=== PATIENT | male | born 1990 | race Caucasian/White ===

== ENCOUNTER 2018-01-17 14:15 | Emergency (ER) | payer BC, SELFPAY ==
[2018-01-17 14:15] VITALS: BP 123/74; PULSE 50; RESP 16; TEMP 36.6; O2SAT 98; BMI 18.0
--- NOTE | 2018-01-17 14:29 | EKG12_ITS ---
Test Reason : ABD PAIN Blood Pressure : / mmHG Vent. Rate : 046 BPM Atrial Rate : 046 BPM P-R Int : 128 ms QRS Dur : 092 ms QT Int : 524 ms P-R-T Axes : 060 -08 060 degrees QTc Int : 458 ms Sinus bradycardia Otherwise normal ECG Confirmed by HOANG DORSEY, CINTHYA ([id number]), assistant film editor DARREN GOLD ([id number] on 01/20/2018 1:55:40 PM Referred By: GERDA Confirmed By:CINTHYA BOLTON MD
--- NOTE | 2018-01-17 14:32 | ED.VISSUMM ---
- ER Visit Summary Date of Service: 01/17/18 Chief Complaint: Acute on chronic abdominal pain History of Present Illness: The patient is a 27 M past medical history of reflux, colitis and depression. Patient states his abdominal pain since 2010. He states he seen 5 different GI specialist. 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 Patient states his latest colonoscopy was about a year ago. He states he has chronic crampy abdominal pain. And chronic diarrhea. No melena. No fever. No prior abdominal surgeries. His girlfriend states when he sleeps his heart rate drops into the 30s. Physical Examination: Well-appearing but thin male. Vital signs are stable afebrile. His heart rates 50 his blood pressure is 123/74. He does not look septic or toxic. He is well hydrated. HEENT exam unremarkable. Electric memories. Neck nontender. No lymphadenopathy. Heart regular rhythm rate about 50. Lungs clear to auscultation bilaterally. Abdomen soft. Nondistended. Normal bowel sounds. No peritoneal signs. No localizing tenderness. He states it is painful all over. There is no hernias or masses. No signs of obstruction. Patient is moving all 4 extremities. Neurovascular intact. Back nontender. Neurologically he is awake and alert without focal motor deficits. Test Results: CBC shows white count of 6. Hemoglobin 14. No bands. Chemistries normal. Normal gap and creatinine. EKG shows a sinus bradycardia. Rate of 46. Emergency Department Course and Treatment: Treated with IV fluids. The exam patient is doing well at 1526. He is comfortable being discharged home. He did ask for a referral for further evaluation for depression. He will be referred to the counseling center. Treatment Plan: Follow-up with the counseling center. Disposition: Discharge Impression: Acute on chronic abdominal pain of uncertain etiology. Chronic diarrhea with a history of colitis Sinus bradycardia This note was generated with [employer] dictation software. It may contain incorrect words, spelling, and punctuation that were not noted in review of the chart prior to signing ED Disposition - Plan for ED Patient: Chief Complaint: Abd Pain
[2018-01-17] MEDS: 0.9% Normal Saline 1,000 ML 1000 ML IV (14:44)
[2018-01-17 14:56] LABS: Anion Gap 9 (5-15); BUN 16 mg/dL (7-18); BUN/Creat Ratio 16.5 RATIO (10-20); Calcium,Total 8.9 mg/dL (8.5-10.1); Chloride 103 mmol/L (98-107); Creatinine, Serum 0.97 mg/dL (0.70-1.30); EST Glomerular Filtration Rate 98 mL/min (>60); Est Glom Filt Rate - Afr Amer 119 mL/min (>60); Estimated Creatinine Clearance 103.04 ml/min; Glucose 81 mg/dL (74-106); Potassium 3.5 mmol/L (3.5-5.1); Sodium Level 142 mmol/L (136-145)
[2018-01-17 15:03] LABS: Basophil# 0.06 X10^3/uL; Eosinophil# 0.13 X10^3/uL; Eosinophils% 2.1 % (0-5); Hematocrit 42.4 % (40-54); Hemoglobin 14.2 g/dl (13.0-16.5); Lymphocyte % 37.8 % (19-41); Mean Corp Hgb Conc 33.5 g/gl (32-36); Mean Corpuscular Hgb 30.3 pg (27.0-32.0); Mean Corpuscular Volume 90.6 fL (80-94); Mean Platelet Vol. 9.5 fl (6.2-12.0); Monocyte# 0.64 X10^3/uL; Monocyte% 10.5 % (0-10); Neutrophil # 2.95 X10^3/uL (2.7-7.7); Neutrophil % 48.6 % (47-70); Platelet Count 192 K/mm3 (150-450); RBC Distribution Width SD 42.8 fl (35.1-43.9); Red Blood Count 4.68 M/mm3 (4.6-6.2); White Blood Count 6.1 K/mm3 (4.4-11.0)
[2018-01-17 15:08] LABS: POSITIVE COUNT NO; POSITIVE DIFFERENTIAL NO; POSITIVE MORPHOLOGY NO
--- NOTE | 2018-01-17 15:09 | ED.RN ---
PT REPORTS THAT HIS DEPRESSION MAY BE CONTRIBUTING TO HIS WEIGHT LOSS. HE REPORTS THAT HE HAD HIS MEDICATION CHANGED A COUPLE MONTHS AGO BY PCP, HE HAS NOT SINCE FOLLOWED UP. PT DENIES BEING SUICIDAL OR HOMICIDAL. DR. LORENZ INFORMED. PT SPOUSE REQUESTING REFERRAL TO PYSCHIATRIST. DR. LORENZ INFORMED.
--- NOTE | 2018-01-17 15:29 | ED.DEP ---
ED Disposition - Plan for ED Patient: Disposition: Home or Assisted Living Chief Complaint: Abd Pain Instructions: ED Abdominal Pain Unkn Cause Referrals: Town Doctor,Out of [Primary Care Provider] - As Needed Counseling,Center [GROUP OF PHYSICIANS] - As soon as possible Additional Instructions: Follow-up with the counseling center for your depression. Follow-up with your doctor for the abdominal pain.
[2018-01-17 15:42] VITALS: BP 109/56; PULSE 48; RESP 15; O2SAT 98
== END 2018-01-17 15:43 | disposition home or self-care (01) ==
PROVIDERS: Emergency Provider Emergency Medicine; Family Provider Family Medicine
DX: R10.9 Unspecified abdominal pain (principal); G89.29 Other chronic pain; K52.9 Noninfective gastroenteritis and colitis, unspecified; R00.1 Bradycardia, unspecified; K21.9 Gastro-esophageal reflux disease without esophagitis; F32.9 Major depressive disorder, single episode, unspecified; Z79.899 Other long term (current) drug therapy; Z87.19 Personal history of other diseases of the digestive system
CPT/HCPCS: 80048; 85025; 93005; 96360; 99283; J7030